=== PATIENT | female | born 1975 | race Caucasian/White ===

== ENCOUNTER 2021-11-10 19:30 | Emergency (ER) | payer SELFPAY ==
[2021-11-10 20:13] VITALS: BP 136/76; PULSE 77; RESP 18; TEMP 36.5; O2SAT 100
--- NOTE | 2021-11-10 21:48 | ED.SKABFB ---
HPI - Skin/Abscess/Foreign Bdy General Chief complaint: Skin/Abscess/Foreign Body <POONAM Hernandes Last Filed: 11/11/21 02:42> Stated complaint: rash <POONAM Hernandes Last Filed: 11/11/21 02:42> Time Seen by Provider: 11/10/21 21:12 <POONAM Hernandes Last Filed: 11/11/21 02:42> History of Present Illness HPI narrative: Patient is a 46-year-old female with a history of primary biliary cholangitis here for evaluation of a pruritic rash to her bilateral arms x 1 day. Patient states she was in [facility] prior to onset of rash and was outside frequently, also slept in a hotel. The rash developed yesterday and is itchy. Nobody else that was seen in the hotel room has a similar rash. She does state that she has chronic diffuse itching due to primary biliary cholangitis, and was told she cannot take Benadryl due to her disease. She has tried topical Benadryl without much relief. Denies fevers, chills, painful rash, tick bite. Denies abdominal pain. <POONAM Hernandes Last Filed: 11/11/21 02:42> Related Data Allergies/Adverse reactions: Allergies Allergy/AdvReac Type Severity Reaction Status Date / Time No Known Allergies Allergy Verified 11/10/21 21:13 <POONAM Hernandes Last Filed: 11/11/21 02:42> Review of Systems Review of Systems: Gen.: Denies fevers or chills Eyes: Denies eye pain or visual change ENT: Denies congestion Respiratory: Denies shortness of breath or cough CV: Denies chest pain or palpitations GI: Denies abdominal pain nausea, emesis or diarrhea denies burning, urgency, frequency or hematuria Musculoskeletal: Denies back pain or muscle pain Neuro: Denies numbness, tingling, weakness or focal weakness Skin: Reports pruritic rash Except as documented, all other systems reviewed and negative <POONAM Hernandes Last Filed: 11/11/21 02:42> All systems reviewed & are unremarkable except as noted in HPI and below <Sarah Solis PA-C - Last Filed: 11/11/21 02:42> Exam Narrative: APPEARANCE: Well appearing, no pain in distress, well-nourished. Head: normocephalic and atraumatic. EYES: PERRLA/EOMI NOSE: No nasal drainage EARS: External ear normal in appearance THROAT: Oropharynx is clear. Mucous membranes are moist. NECK: Supple. No adenopathy, no masses. RESPIRATORY: Airway patent, respirations nonlabored. Clear to auscultation bilaterally, no rales, rhonchi, wheezing. CARDIOVASCULAR: Regular rate and rhythm without murmurs, rubs, or gallops. ABDOMINAL: Normoactive bowel sounds. Soft, nontender, nondistended. No rebound tenderness or guarding. MUSCULOSKELETAL: Extremities are warm and well-perfused. Moves all extremities well. No edema. NEURO: Normal speech. No focal neurologic deficits. SKIN: Patient has 10-20, 3 mm erythematous papules diffuse over bilateral arms, she is about 5 lesions to her bilateral lower extremities. She has 2 lesions on her upper back. PSYCHIATRIC: Normal affect/mood. <Sarah Solis PA-C - Last Filed: 11/11/21 02:42> Course Vital Signs Vital signs: Vital Signs Temperature 97.7 F 11/10/21 20:13 Pulse Rate 77 11/10/21 20:13 Respiratory Rate 18 11/10/21 20:13 Blood Pressure 136/76 11/10/21 20:13 Pulse Oximetry 100 11/10/21 20:13 Temperature 97.7 F 11/10/21 20:13 Pulse Rate 77 11/10/21 20:13 Respiratory Rate 18 11/10/21 20:13 Blood Pressure 136/76 11/10/21 20:13 Pulse Oximetry 100 11/10/21 20:13 <Sarah Solis PA-C - Last Filed: 11/11/21 02:42> MDM - Skin/Abscess/Foreign Bdy MDM Narrative Medical decision making narrative: This patient who presents with rash for 2 days, consistent with contact/allergic dermatitis or bug bites. History and exam findings not consistent with dangerous etiologies of rash such as SJS/TEN, or secondary dangerous causes such as petechial rashes from thrombocytopenia or
== END 2021-11-10 22:01 | disposition home or self-care (01) ==
PROVIDERS: Emergency Provider Emergency Medicine; PCP Physician Assistant
DX: L25.9 Unspecified contact dermatitis, unspecified cause (principal)
CPT/HCPCS: 99283

== ENCOUNTER 2023-09-27 08:19 | Outpatient (CLI) | payer OTHER, SELFPAY ==
--- NOTE | ~2023-09-27 | MM_ITS ---
EXAMINATION: MM screening misha BI w henna HISTORY: Screening TECHNIQUE: Craniocaudal and mediolateral oblique 3-D tomosynthesis images were obtained and synthetic 2-D images were generated. CAD analysis was submitted and interpreted. COMPARISON: No prior mammogram is available for comparison at this institution. BREAST PARENCHYMAL COMPOSITION: Not dense: There are scattered areas of fibroglandular density. FINDINGS: There is no evidence of suspicious mass, calcification, or architectural distortion to sugg est malignancy in either breast. There has been no suspicious interval change. IMPRESSION: 1. No mammographic evidence of malignancy. 2. Recommend routine screening mammography in one year. BI-RADS Category 1: Negative Reviewed, dictated and finalized at location A.
== END 2023-09-27 08:20 | disposition home or self-care (01) ==
LOC: CHSIMG 08:26
PROVIDERS: Visit Provider Obstetrics & Gynecology
DX: Z12.31 Encounter for screening mammogram for malignant neoplasm of breast (principal)
CPT/HCPCS: 77063; 77067